=== PATIENT | female | born 1935 | race Caucasian/White ===

== ENCOUNTER 2017-12-19 11:20 | Inpatient (IN) | END 2017-12-26 15:44 | disposition home or self-care (01) | DRG 246 ==

== ENCOUNTER 2018-01-13 04:14 | Inpatient (IN) | END 2018-01-18 15:53 | disposition home or self-care (01) | DRG 280 ==

== ENCOUNTER 2018-01-30 02:52 | Inpatient (IN) | END 2018-02-02 16:55 | disposition home or self-care (01) | DRG 871 ==

== ENCOUNTER 2019-01-14 01:59 | Inpatient (IN) | payer BC ==
[~2019-01-14] VITALS: Ht 160 cm; Wt 69.3 kg
[2019-01-14] VITALS (7 sets, daily range): BP systolic 95–116; BP diastolic 56–83; PULSE 67–93; RESP 18; Ht 160 cm; Wt 69.3 kg
[~2019-01-14 01:59] MED LIST: AMIO200T4 PO; APIX5TAB PO; ATOR-2 PO; CLOP75TA28 PO; ERGO500013 PO; GABA100C14 PO; LAS20 PO; METO-448 PO; OXYB5TAB22 PO
[2019-01-14] MEDS ORDERED: CEFEPIME 2GM/50 ML (PMX) 50 ML IVPB STA (02:28)
[2019-01-14] MEDS ORDERED: VANCOMYCIN 1 GM (PMX) 250 ML IVPB ONE (02:30)
[2019-01-14] MEDS ORDERED: ASPIRIN 81 MG TAB PO STA (03:06)
[2019-01-14] MEDS ORDERED: SOD CHLORIDE 0.9% 1,000 ML IV SCH (04:11)
[2019-01-14] MEDS ORDERED: ACETAMINOPHEN 325 MG TAB PO PRN (04:30)
[2019-01-14] MEDS ORDERED: ENOXAPARIN 60 MG/0.6 ML SYG SC SCH (04:30)
[2019-01-14] MEDS ORDERED: HYDROCODONE/APAP (5/325) TAB PO PRN (04:30)
[2019-01-14] MEDS ORDERED: ONDANSETRON 4 MG INJ IV PRN (04:30)
[2019-01-14] MEDS ORDERED: NITROGLYCERIN (SL) 0.4 MG TAB SL PRN (04:30)
[2019-01-14] MEDS ORDERED: FUROSEMIDE 40 MG INJ IV ONE (04:30)
[2019-01-14] MEDS ORDERED: BISACODYL (EC) 5 MG TAB PO PRN (04:30)
[2019-01-14] MEDS ORDERED: DOCUSATE SODIUM 100 MG CAP PO PRN (04:30)
[2019-01-14] MEDS ORDERED: NACL 0.9% 3 ML SYG IV SCH (04:30)
[2019-01-14] MEDS ORDERED: FERR325T5 PO (04:43)
[2019-01-14] MEDS ORDERED: ALLO300T2 PO (04:43)
[2019-01-14] MEDS ORDERED: LEVO88TA3 PO (04:43)
[2019-01-14] MEDS ORDERED: DOCU-159 PO (04:47)
[2019-01-14] MEDS ORDERED: GLIM2TAB PO (04:50)
[2019-01-14] MEDS ORDERED: ASPI-817 PO (04:50)
[2019-01-14] MEDS ORDERED: MELO7.5T38 PO (04:50)
--- NOTE | 2019-01-14 05:20 | ERD ---
ER Documentation Chief Complaint Chief Complaint SOB X TODAY HPI This is an 83-year-old female comes in with shortness of breath that started about 6 hours ago and got progressively worse. She denies any fevers chills nausea vomiting or chest pain. Shortness breath was progressively worse and worse when she laid down. History of CHF in the past. ROS All systems reviewed and are negative except as per history of present illness. Medications Home Meds Active Scripts Furosemide (Lasix) 20 Mg Tab, 20 MG PO BID DIURETICS for 7 Days, #14 TAB Prov:PAO WOOD MD 02/02/18 Amiodarone Hcl* (Amiodarone Hcl*) 200 Mg Tablet, 200 MG PO DAILY for 60 Days, #60 TAB Prov:PAO WOOD MD 02/02/18 Metoprolol Tartrate* (Lopressor*) 25 Mg Tab, 25 MG PO BID for 30 Days, #60 TAB Prov:PAO WOOD MD 01/18/18 Atorvastatin* (Atorvastatin*) 80 Mg Tablet, 80 MG PO HS, #90 TAB 0 Refills Prov:KYMBERLY BINGHAM 12/26/17 Clopidogrel Bisulfate (Clopidogrel) 75 Mg Tablet, 75 MG PO DAILY, #90 TAB 1 Refill Prov:KYMBERLY BINGHAM 12/26/17 Apixaban* (Eliquis*) 5 Mg Tablet, 5 MG PO BID, #60 TAB 2 Refills Prov:KYMBERLY BINGHAM 12/26/17 Reported Medications Meloxicam* (Meloxicam*) 7.5 Mg Tablet, 7.5 MG PO DAILY for 30 Days, #30 01/14/19 Glimepiride* (Glimepiride*) 2 Mg Tablet, 2 MG PO BID for 30 Days, #60 01/14/19 Aspirin* (Aspirin* EC) 81 Mg Tablet.dr, 81 MG PO DAILY for 30 Days, #30 01/14/19 Docusate Sodium* (Docusate Sodium*) 100 Mg Capsule, 100 MG PO DAILY, #30 CAP 01/14/19 Ferrous Sulfate (Ferrous Sulfate) 325 Mg Tablet.dr, 325 MG PO DAILY for 30 Days, #30 01/14/19 Levothyroxine Sodium* (Levothyroxine Sodium*) 88 Mcg Tablet, 88 MCG PO QAM for 30 Days, #30 01/14/19 Allopurinol* (Allopurinol*) 300 Mg Tablet, 300 MG PO DAILY for 30 Days, #30 01/14/19 Oxybutynin Chloride* (Ditropan* XL) 5 Mg Tabsr, 5 MG PO DAILY, TAB.SA 12/19/17 Gabapentin* (Gabapentin*) 100 Mg Capsule, 100 MG PO QAM, #90 CAP 12/19/17 Discontinued Reported Medications Ergocalciferol (Vitamin D2) (VITAMIN D2) 50,000 Unit Capsule, 47799 UNIT PO WEEKLY, CAP 12/19/17 Allergies Allergies: Coded Allergies: No Known Allergy (Unverified , 01/14/19) PMhx/Soc History of Surgery: No Anesthesia Reaction: No Hx Neurological Disorder: No Hx Respiratory Disorders: No Hx Cardiac Disorders: Yes (CHF) Hx Psychiatric Problems: No Hx Miscellaneous Medical Probl: No Hx Alcohol Use: No Hx Substance Use: No Hx Tobacco Use: No Smoking Status: Never smoker Physical Exam Vitals Vital Signs Date Temp Pulse Resp B/P (MAP) Pulse Ox O2 O2 Flow FiO2 Time Delivery Rate 01/14/19 72 100 60 04:00 01/14/19 60 16 100/58 100 BIPAP 03:17 (72) 01/14/19 60 02:25 01/14/19 96.9 70 29 178/90 100 BIPAP 02:12 (119) 01/14/19 96.9 69 29 178/90 100 02:12 (119) 01/14/19 80 96 100 02:07 Physical Exam Const: No acute distress Head: Atraumatic Eyes: Normal Conjunctiva ENT: Normal External Ears, Nose and Mouth. Neck: Full range of motion. No meningismus. Resp: Scattered rales bilaterally Cardio: Regular rate and rhythm, no murmurs Abd: Soft, non tender, non distended. Normal bowel sounds Skin: No petechiae or rashes Back: No midline or flank tenderness Ext: No cyanosis, or edema Neur: Awake and alert Psych: Normal Mood and Affect Result Diagram: 01/14/1920901/14/19 0210 Results 24 hrs Laboratory Tests Test 01/14/19 02:10 01/14/19 02:17 01/14/19 02:27 White Blood Count 7.6 10^3/ul Red Blood Count 4.06 10^6/ul Hemoglobin 11.1 g/dl Hematocrit 35.3 % Mean Corpuscular Volume 86.9 fl Mean Corpuscular Hemoglobin 27.3 pg Mean Corpuscular 31.4 g/dl Hemoglobin Concent Red Cell Distribution Width 13.0 % Platelet Count 146 10^3/UL Mean Platelet Volume 10.3 fl Immature Granulocytes % 0.700 % Neutrophils % 67.5 % Lymphocytes % 21.9 % Monocytes % 6.8 % Eosinophils % 2.6 % Basophils % 0.5 % Nucleated Red Blood Cells % 0.3 /100WBC Immature Granulocytes # 0.050 10^3/ul Neutrophils # 5.1 10^3/ul Lymphocytes # 1.7 10^3/ul Monocytes # 0.5 10^3/ul Eosinophils # 0.2 10^3/ul Basophils # 0.0 10^3/ul Nucleated Red Blood Cells # 0.0 10^3/ul Prothrombin Time 16.9 Sec Prothrombin Time Ratio 1.3 INR International 1.36 Normalized Ratio Activated 29.7 Sec Partial Thromboplast Time Sodium Level 142 mmol/L Potassium Level 4.5 mmol/L Chloride Level 105 mmol/L Carbon Dioxide Level 23 mmol/L Anion Gap 14 Blood Urea Nitrogen 19 mg/dl Creatinine 1.09 mg/dl Est Glomerular Filtrat mL/min Rate mL/min Glucose Level 236 mg/dl Calcium Level 8.9 mg/dl Total Bilirubin 0.3 mg/dl Direct Bilirubin 0.00 mg/dl Indirect Bilirubin 0.3 mg/dl Aspartate Amino 40 IU/L Transf (AST/SGOT) Alanine 26 IU/L Aminotransferase (ALT/SGPT) Alkaline Phosphatase 93 IU/L Troponin I 0.138 ng/ml B-Type Natriuretic Peptide 4370 PG/ML Total Protein 7.1 g/dl Albumin 4.2 g/dl Globulin 2.90 g/dl Albumin/Globulin Ratio 1.44 Blood Gas Specimen Source Blood arterial Arterial Blood Date Drawn 01/14/2019 2:40:25 AM Arterial Blood pH 7.381 (Temp corrected) Arterial Blood pCO2 37.5 mmhg (Temp correct) Arterial Blood pO2 103.3 mmHG (Temp corrected) Arterial Blood HCO3 21.7 mmol/L Arterial Blood Base Excess -3.0 mmol/L Arterial Blood 97.1 mmHG Oxygen Saturation Elian Test ACCEPTAB Arterial Blood Gas Right Radial Puncture Site Arterial 0.3 % Blood Carboxyhemoglobin Arterial Blood 0.1 % Methemoglobin Blood Gas A-a O2 283.3 mmHg Differential Oxyhemoglobin Percent 96.7 % Blood Gas Temperature 37.0 C Blood Gas Respiration Rate 14.0 Blood Gas Actual 23 Respiration Rate Blood Gas Modality MASK - BIPAP FiO2 60.0 % Blood Gas Inspiratory Time 0.9 Blood Gas IPAP/EPAP Ratio 15/5 Blood Gas Notified Whom AA Blood Gas Notified Time 01/14/2019 2:52:19 AM POC Venous Lactate 5.8 mmol/L Current Medications Medications Dose Sig/Lisa Start Time Status Last (Trade) Ordered Route PRN Stop Time Admin Dose Reason Admin Cefepime HCl 50 ml @ ONCE STAT 01/14/19 DC 01/14/19 100 mls/hr IVPB 02:28 02:54 01/14/19 02:57 Vancomycin 250 ml @ ONCE ONCE 01/14/19 DC 01/14/19 HCl 125 mls/hr IVPB 02:30 03:38 01/14/19 04:29 Aspirin 162 mg ONCE STAT 01/14/19 DC 01/14/19 (Aspirin) PO 03:06 03:38 01/14/19 03:12 Amiodarone 200 mg DAILY PO 01/14/19 HCl 09:00 (Cordarone) 80 mg HS PO 01/14/19 Atorvastatin 21:00 Calcium (Lipitor) Clopidogrel 75 mg DAILY PO 01/14/19 Bisulfate 09:00 (plaVIX) Sodium 1,000 ml @ [id number] IV 01/14/19 Chloride 75 mls/hr 04:11 IV Flush 3 ml PER 01/14/19 (NS 3 ml) PROTOCOL IV 04:30 Ondansetron 4 mg Q6H PRN 01/14/19 HCl (Zofran IV 04:30 Inj) NAUSEA/VOMITI NG Aspirin 81 mg DAILY PO 01/14/19 (Aspirin) 09:00 1 tab Q5M PRN 01/14/19 Nitroglycerin SL .CHEST 04:30 PAIN (Nitroglyceri n (Sl Tab) 0.4 Mg) 650 mg Q6H PRN 01/14/19 Acetaminophen PO .PAIN 1-3 04:30 (Tylenol OR TEMP Tab) 1 tab Q6H PRN 01/14/19 Acetaminophen PO .PAIN 4-6 04:30 / Hydrocodone Bitart ([place] (5/325)) Docusate 100 mg Q12H PRN 01/14/19 Sodium PO 04:30 (Colace) .CONSTIPATION Bisacodyl 5 mg DAILY PRN 01/14/19 (Dulcolax) PO 04:30 .CONSTIPATION Enoxaparin 55 mg Q24H SC 01/14/19 Sodium 04:30 (Lovenox) Furosemide 40 mg ONCE ONCE 01/14/19 DC (Lasix) IV 04:30 01/14/19 04:36 Procedures/MDM Emergency department course: Patient seen and evaluated triage was in ER MD. Placed immediately on BiPAP. Had a stat cardiac workup including a stat chest x-ray and stat EKG. Diagnostic data: EKG: Rate/Rhythm: [Normal Sinus Rhythm] QRS, ST, T-waves: [No changes consistent w/ acute ischemia] Impression: [No evidence of ischemia or arrhythmia] Chest X-ray 1V Interpreted by me: Soft Tissue: No acute abnormalities Bones: No acute abnormalities Mediastinum/Cardiac Silhouette/Lungs: Increased interstitial fluid markings. Cardiomegaly. Impression: Pulmonary edema Patient's heart failure symptoms is concerning for acute decompensation and will require inpatient workup and monitoring. Further w/u for ischemia, arrhythmia, PE or dissection will be deferred to the inpatient team. Patient did have a lactic acid of 5.4 but this is likely secondary to hypoxic respiratory failure. Fluids were withheld secondary to history of CHF and obvious pulmonary edema on exam. However antibiotics broad-spectrum were appropriately started in case patient converts to sepsis as an inpatient Accepting Care Team: Current data and ongoing care discussed. Time: 4:05 AM Primary Provider: Hospitalist Consulting: [XOXOXO] Outstanding Data: none Critical Care: Time: 45 minutes, independent of separately billable procedural time Treatments/Evaluations: Close monitoring and treatment of unstable vital signs, cardiorespiratory, and neurologic status, while maintaining tight balance of fluid, respiratory, and cardiac interventions. Departure Diagnosis: Primary Impression: Respiratory distress Condition: Serious ZITA VALENTINE Jan 14, 2019 05:20
[2019-01-14] MEDS: ASPIRIN (EC) 81 MG TAB PO SCH (08:34)
--- NOTE | 2019-01-14 08:57 | HP ---
Date/Time of Note Date/Time of Note DATE: 01/14/19 TIME: 08:57 Assessment/Plan VTE Prophylaxis SCD applied (from Nsg): Yes Pharmacological prophylaxis: LMWH Lines/Catheters IV Catheter Type (from Nrsg): Saline Lock Assessment/Plan Assessment/Plan 1. Acute on chronic combined heart failure - Patient has hx of CHF exacerbations in the past with last about 1 year ago. Denies any change in diet, medications, or recent weight gain - Cardiology consultation placed for further recommendations - BNP noted to be elevated - CXR consistent with pulmonary edema and small bilateral effusions - On Lasix IV BID and will monitor I/O and daily weights - ECHO ordered 2. NSTEMI - Trops elevated and LMWH on board - possible demand in setting of CHF exacerbation and afib with RVR - EKG without acute ST changes - monitor 3. Atrial fibrillation with RVR - given Amiodarone PO with no improvement - Started on ggt given borderline BP - On eliquis at home and will resume prior to d/c 4. JOSE ANGEL on CKD - mild - continue monitoring - avoid nephrotoxic agents - most likely cardiorenal etiology 5. DM - A1c noted - hold home medications - ISS 6. hypothyroidism - TSH noted and will decrease dose of levothyroxine 7. CAD s/p PCI - continue home medications 8. Diet - Cardiac/carb controlled 9. DVT ppx - LMWH 10. Disposition - Admit to telemetry for treatment of CHF exacerbation and atrial fibrillation with RVR Result Diagram: 01/14/19 0210 01/14/19 0210 Results 24hrs Laboratory Tests Test 01/14/19 02:10 01/14/19 02:17 01/14/19 02:27 01/14/19 07:03 White Blood Count 7.6 Red Blood Count 4.06 L Hemoglobin 11.1 #L Hematocrit 35.3 #L Mean Corpuscular 86.9 Volume Mean Corpuscular 27.3 L Hemoglobin Mean Corpuscular 31.4 L Hemoglobin Concen t Red Cell 13.0 Distribution Width Platelet Count 146 # Mean Platelet 10.3 Volume Immature 0.700 H Granulocytes % Neutrophils % 67.5 Lymphocytes % 21.9 Monocytes % 6.8 Eosinophils % 2.6 Basophils % 0.5 Nucleated Red 0.3 H Blood Cells % Immature 0.050 H Granulocytes # Neutrophils # 5.1 Lymphocytes # 1.7 Monocytes # 0.5 Eosinophils # 0.2 Basophils # 0.0 Nucleated Red 0.0 Blood Cells # Prothrombin Time 16.9 H Prothrombin Time 1.3 Ratio INR International 1.36 Normalized Ratio Activated 29.7 Partial Thrombopl ast Time Sodium Level 142 Potassium Level 4.5 Chloride Level 105 Carbon Dioxide 23 Level Anion Gap 14 H Blood Urea 19 Nitrogen Creatinine 1.09 H Est Glomerular Filtrat Rate mL/min Glucose Level 236 H Calcium Level 8.9 Total Bilirubin 0.3 Direct Bilirubin 0.00 Indirect 0.3 Bilirubin Aspartate Amino 40 Transf (AST/SGOT) Alanine 26 Aminotransferase (ALT/SGPT) Alkaline 93 Phosphatase Troponin I 0.138 *H 0.266 *H B-Type 4370 H Natriuretic Peptide Total Protein 7.1 Albumin 4.2 Globulin 2.90 Albumin/Globulin 1.44 Ratio Blood Gas Blood arterial Specimen Source Arterial Blood 01/14/2019 2:40:2 Date Drawn 5 AM Arterial Blood pH 7.381 (Temp corrected) Arterial Blood 37.5 pCO2 (Temp correct) Arterial Blood 103.3 H pO2 (Temp corrected) Arterial Blood 21.7 L HCO3 Arterial Blood -3.0 Base Excess Arterial Blood 97.1 Oxygen Saturation Elian Test ACCEPTAB Arterial Blood Right Radial Gas Puncture Site Arterial 0.3 Blood Carboxyhemo globin Arterial Blood 0.1 Methemoglobin Blood Gas A-a O2 283.3 H Differential Oxyhemoglobin 96.7 Percent Blood Gas 37.0 Temperature Blood Gas 14.0 Respiration Rate Blood Gas Actual 23 Respiration Rate Blood Gas MASK - BIPAP Modality FiO2 60.0 Blood Gas 0.9 Inspiratory Time Blood Gas 15/5 IPAP/EPAP Ratio Blood Gas AA Notified Whom Blood Gas 01/14/2019 2:52:1 Notified Time 9 AM POC Venous 5.8 *H Lactate Lactic Acid Level 1.3 Magnesium Level 1.6 L Creatine Kinase 65 Creatine Kinase 2.2 Index Creatinine Kinase 1.45 MB (Mass) Triglycerides 72 Level Cholesterol Level 77 L LDL Cholesterol, 19 Calculated HDL Cholesterol 44 Cholesterol/HDL 1.7 Ratio Thyroid 0.027 L Stimulating Hormone (TSH) HPI/ROS Admit Date/Time Admit Date/Time 01/14/19 1000 Hx of Present Illness 83 yo F with PMH systolic and diastolic heart failure, diabetes mellitus, atrial fibrillation on Eliquis, CAD, CKD, mild aortic stenosis, and hypothyroidism presented to ED for acute shortness of breath this am. Patient admits to experiencing shortness of breath for about 6 hours that was worse while lying down and on exertion. She was brought in by EMS on BIPAP. Patient was noted to be in moderate distress at time of presentation, tripoding, and with accessory muscle use. In the ED, CXR was consistent with pulmonary edema and BNP noted to be elevated. Patient denies any recent weight gain and has been compliant with medications. She does admit to a dry cough recently but denies any fevers, ch ills, sick contact, recent travel, chest pain, wheezing, or abdominal issues. During course of ED stay, patient went into afib with RVR and started on Amiodarone drip given borderline BP. ROS All 12 systems reviewed and pertinent positives as per HPI. All others negative. Constitutional: No disoriented, No nausea Eyes: No discharge ENT: No congestion Respiratory: cough, shortness of breath; No sputum, No wheezing Cardiovascular: No chest pain, No lightheadedness, No palpitations Gastrointestinal: No pain, No constipation, No diarrhea, No nausea, No vomiting Genitourinary: no complaints Musculoskeletal: no complaints Skin: No erythema, No laceration, No rash Neurologic: No confusion, No focal-weakness, No syncope Endocrine: no complaints Lymphatic: no complaints Psychological: nl mood/affect Immunologic: no complaints PMH/Family/Social Past Medical History Medical History: congestive heart failure, coronary artery disease, diabetes, hypertension, hypothyroid, renal disease, other (atrial fibrillation, aortic stenosis) Medications Current Medications Amiodarone HCl (Cordarone) 200 mg DAILY PO Last administered on 01/14/19at 08:16; Admin Dose 200 MG; Start 01/14/19 at 09:00 Atorvastatin Calcium (Lipitor) 80 mg HS PO ; Start 01/14/19 at 21:00 Clopidogrel Bisulfate (plaVIX) 75 mg DAILY PO Last administered on 01/14/19at 08:34; Admin Dose 75 MG; Start 01/14/19 at 09:00 IV Flush (NS 3 ml) 3 ml PER PROTOCOL IV ; Start 01/14/19 at 04:30 Ondansetron HCl (Zofran Inj) 4 mg Q6H PRN IV NAUSEA/VOMITING; Start 01/14/19 at 04:30 Nitroglycerin (Nitroglycerin (Sl Tab) 0.4 Mg) 1 tab Q5M PRN SL .CHEST PAIN; Start 01/14/19 at 04:30 Acetaminophen (Tylenol Tab) 650 mg Q6H PRN PO .PAIN 1-3 OR TEMP; Start 01/14/19 at 04:30 Acetaminophen/ Hydrocodone Bitart ([place] (5/325)) 1 tab Q6H PRN PO .PAIN 4-6; Start 01/14/19 at 04:30 Docusate Sodium (Colace) 100 mg Q12H PRN PO .CONSTIPATION; Start 01/14/19 at 04:30 Bisacodyl (Dulcolax) 5 mg DAILY PRN PO .CONSTIPATION; Start 01/14/19 at 04:30 Enoxaparin Sodium (Lovenox) 55 mg Q24H SC Last administered on 01/14/19at 06:17; Admin Dose 55 MG; Start 01/14/19 at 04:30 Aspirin (Halfprin) 81 mg DAILY PO Last administered on 01/14/19at 08:34; Admin Dose 81 MG; Start 01/14/19 at 09:00 Levothyroxine Sodium (Synthroid) 88 mcg QAM PO ; Start 01/14/19 at 09:00 Glimepiride (Amaryl) 2 mg BID PO ; Start 01/14/19 at 09:00; Status UNV Oxybutynin Chloride (Ditropan Xl) 5 mg DAILY PO ; Start 01/14/19 at 09:00; Status UNV Miscellaneous Information 325 mg DAILY PO ; Start 01/14/19 at 09:00; Status UNV Coded Allergies: No Known Allergy (Unverified , 01/14/19) Past Surgical History Past Surgical Hx: no surgical history, other Family History Significant Family History: no pertinent family hx Social History Alcohol Use: none Smoking Status: Never smoker Drug Use: none Exam/Review of Systems Vital Signs Vitals Vital Signs Date Temp Pulse Resp B/P (MAP) Pulse Ox O2 O2 Flow FiO2 Time Delivery Rate 01/14/19 112 25 100/69 99 Nasal 4.0 08:00 (79) Cannula 01/14/19 60 05:10 01/14/19 96.9 02:12 Intake and Output 01/13/19 01/13/19 01/14/19 1515:00 23:00 07:00 IntakeIntake Total 50 ml BalanceBalance 50 ml Exam Exam General: Patient is laying in bed and answers questions appropriately. no acute respiratory distress. on nasal cannula Mentation: Patient is alert and oriented 4, Head: Normocephalic atraumatic Eyes: EOMI, pupils reactive to light Neck: Supple, nontender, midline Respiratory: Coarse breath sounds at bases, R>L. No wheezing appreciated Cardiovascular: S1, S2, irregular rhythm, tachycardia, systolic murmur appreciated Gastrointestinal: soft, nontender, nondistended, bowel sounds heard. no rebound or guarding Neurological: Moves all extremities spontaneously. no focal deficits appreciated Ext: no edema, clubbing or cyanosis Skin: no rashes or lesions Additional Comments Home medications reviewed PROCEDURE: XR Chest. CLINICAL INDICATION: Shortness of breath TECHNIQUE: AP view of the chest. COMPARISON: CHEST 01/30/2018 FINDINGS: The heart is enlarged. There is aortic knob calcification. There is mild pulmonary edema. There are small pleural effusions. There is no pneumothorax. Visualized osseous structures are intact. IMPRESSION: Mild pulmonary edema. Small bilateral pleural effusions. RPTAT: HAP Admit-r Flaquito Physician Date Time Electronically viewed and signed by Admit-r Flaquito, Physician on 01/14/2019 03:37 JOSE FENTON MD Jan 14, 2019 08:57
[2019-01-14] MEDS ORDERED: AMIODARONE 200 MG TAB PO SCH ×2 (09:00→21:00)
[2019-01-14] MEDS ORDERED: GLUCAGON 1 MG INJ IM PRN (09:00)
[2019-01-14] MEDS ORDERED: ASPIRIN 81 MG TAB PO SCH (09:00)
[2019-01-14] MEDS ORDERED: DEXTROSE 50% 50 ML SYRINGE IV PRN ×2 (09:00)
[2019-01-14] MEDS ORDERED: GLUCOSE GEL 15 GRAM TUBE PO PRN ×2 (09:00)
[2019-01-14] MEDS ORDERED: GLUCOSE GEL 15 GRAM TUBE BUCCAL PRN (09:00)
[2019-01-14] MEDS ORDERED: LEVOTHYROXINE 88 MCG TAB PO SCH (09:00)
[2019-01-14] MEDS ORDERED: CLOPIDOGREL 75 MG TAB PO SCH (09:00)
[2019-01-14] MEDS: OXYBUTYNIN (XL) 5 MG TAB PO SCH (09:39)
[2019-01-14] MEDS: FERROUS SULFATE (EC) 325 MG TAB PO SCH (09:39)
[2019-01-14] MEDS: AMIODARONE 900 MG in DEXTROSE 5% 482 ML IV SCH ×2 (10:29→18:10)
[2019-01-14] MEDS: INSULIN ASPART [NOVOLOG] 3 ML PEN SC SCH ×3 (12:00→20:59)
[2019-01-14] MEDS ORDERED: MAGNESIUM SULFATE 2 GM/50 ML 50 ML IVPB ONE (15:00)
[2019-01-14] MEDS: GLIMEPIRIDE 2 MG TAB PO SCH (17:56)
[2019-01-14] MEDS ORDERED: FUROSEMIDE 40 MG INJ IV SCH (18:00)
[2019-01-14] MEDS: FUROSEMIDE 20 MG INJ IV SCH (18:00)
--- NOTE | 2019-01-14 18:09 | CONS ---
Assessment/Plan Cardiology NYHA: II Heart Failure Type: Acute on Chronic Heart Failure Type: Systolic Assessment/Plan Hospital Course (Demo Recall) Acute decompensated systolic and diastolic congestive heart failure Cardiomyopathy with ejection fraction 45-50% Non-ST elevation NM status post PCI to LAD November 2017 Paroxysmal atrial fibrillation with rapid ventricular rates, improved Acute kidney injury Mild aortic stenosis Diabetes -Patient presents with paroxysmal atrial fibrillation with rapid ventricular rates and decompensated congestive heart failure -Symptoms have improved with IV Lasix, would continue and titrate as renal function blood pressure permits -Patient was initially in sinus rhythm and then atrial fibrillation on subsequent ECG. Continue IV amiodarone -Continue beta-blockers heart rate and blood pressure permits -Troponins are mildly elevated, this likely secondary to decompensated congestive heart failure. -Patient with PCI to LAD in November 2017, patient is on anticoagulation, would stop Plavix and continue aspirin and anticoagulation -Maintain potassium above 4.0 and magnesium above 2.0 -Check echocardiogram Consultation Date/Type/Reason Admit Date/Time 01/14/19 1000 Type of Consult Cardiology Reason for Consultation Shortness of breath Date/Time of Note DATE: 01/14/19 TIME: 18:02 Hx of Present Illness This is an 83-year-old female well-known to me from previous admissions with past medical history of CAD status post PCI November 2017, paroxysmal atrial fibrillation, congestive heart failure who presents with progressive worsening shortness of breath over 2-3 days. Symptoms are worse with lying down and with ambulation and improved at rest. She denies any chest pain, palpitations or dizziness. She is feeling much better after admission and receiving multiple medications. She still has mild shortness of breath now but it is much better. 12 point review of systems was performed with all pertinent positives and negatives mentioned above and all else is negative Past Medical History Paroxysmal atrial fibrillation Medical History: congestive heart failure, coronary artery disease, high cholesterol, hypertension, renal disease Home Meds Active Scripts Furosemide (Lasix) 20 Mg Tab, 20 MG PO BID DIURETICS for 7 Days, #14 TAB Prov:PAO WOOD MD 02/02/18 Amiodarone Hcl* (Amiodarone Hcl*) 200 Mg Tablet, 200 MG PO DAILY for 60 Days, #60 TAB Prov:PAO WOOD MD 02/02/18 Metoprolol Tartrate* (Lopressor*) 25 Mg Tab, 25 MG PO BID for 30 Days, #60 TAB Prov:PAO WOOD MD 01/18/18 Atorvastatin* (Atorvastatin*) 80 Mg Tablet, 80 MG PO HS, #90 TAB 0 Refills Prov:KYMBERLY BINGHAM 12/26/17 Clopidogrel Bisulfate (Clopidogrel) 75 Mg Tablet, 75 MG PO DAILY, #90 TAB 1 Refill Prov:KYMBERLY BINGHAM 12/26/17 Apixaban* (Eliquis*) 5 Mg Tablet, 5 MG PO BID, #60 TAB 2 Refills Prov:KYMBERLY BINGHAM 12/26/17 Reported Medications Meloxicam* (Meloxicam*) 7.5 Mg Tablet, 7.5 MG PO DAILY for 30 Days, #30 01/14/19 Glimepiride* (Glimepiride*) 2 Mg Tablet, 2 MG PO BID for 30 Days, #60 01/14/19 Aspirin* (Aspirin* EC) 81 Mg Tablet.dr, 81 MG PO DAILY for 30 Days, #30 01/14/19 Docusate Sodium* (Docusate Sodium*) 100 Mg Capsule, 100 MG PO DAILY, #30 CAP 01/14/19 Ferrous Sulfate (Ferrous Sulfate) 325 Mg Tablet.dr, 325 MG PO DAILY for 30 Days, #30 01/14/19 Levothyroxine Sodium* (Levothyroxine Sodium*) 88 Mcg Tablet, 88 MCG PO QAM for 30 Days, #30 01/14/19 Allopurinol* (Allopurinol*) 300 Mg Tablet, 300 MG PO DAILY for 30 Days, #30 01/14/19 Oxybutynin Chloride* (Ditropan* XL) 5 Mg Tabsr, 5 MG PO DAILY, TAB.SA 12/19/17 Gabapentin* (Gabapentin*) 100 Mg Capsule, 100 MG PO QAM, #90 CAP 12/19/17 Discontinued Reported Medications Ergocalciferol (Vitamin D2) (VITAMIN D2) 50,000 Unit Capsule, 39668 UNIT PO WEEKLY, CAP 12/19/17 Medications Current Medications Atorvastatin Calcium (Lipitor) 80 mg HS PO ; Start 01/14/19 at 21:00 Clopidogrel Bisulfate (plaVIX) 75 mg DAILY PO Last administered on 01/14/19at 08:34; Admin Dose 75 MG; Start 01/14/19 at 09:00 IV Flush (NS 3 ml) 3 ml PER PROTOCOL IV ; Start 01/14/19 at 04:30 Ondansetron HCl (Zofran Inj) 4 mg Q6H PRN IV NAUSEA/VOMITING; Start 01/14/19 at 04:30 Nitroglycerin (Nitroglycerin (Sl Tab) 0.4 Mg) 1 tab Q5M PRN SL .CHEST PAIN; Start 01/14/19 at 04:30 Acetaminophen (Tylenol Tab) 650 mg Q6H PRN PO .PAIN 1-3 OR TEMP; Start 01/14/19 at 04:30 Acetaminophen/ Hydrocodone Bitart ([place] (5/325)) 1 tab Q6H PRN PO .PAIN 4-6; Start 01/14/19 at 04:30 Docusate Sodium (Colace) 100 mg Q12H PRN PO .CONSTIPATION; Start 01/14/19 at 04:30 Bisacodyl (Dulcolax) 5 mg DAILY PRN PO .CONSTIPATION; Start 01/14/19 at 04:30 Enoxaparin Sodium (Lovenox) 55 mg Q24H SC Last administered on 01/14/19 06:17; Admin Dose 55 MG; Start 01/14/19 at 04:30 Aspirin (Halfprin) 81 mg DAILY PO Last administered on 01/14/19 08:34; Admin Dose 81 MG; Start 01/14/19 at 09:00 Glimepiride (Amaryl) 2 mg BID WITH MEALS PO Last administered on 01/14/19 17:56; Admin Dose 2 MG; Start 01/14/19 at 17:55 Oxybutynin Chloride (Ditropan Xl) 5 mg DAILY PO Last administered on 01/14/19 09:39; Admin Dose 5 MG; Start 01/14/19 at 09:00 Ferrous Sulfate (Ferrous Sulfate (Ec)) 325 mg DAILY PO Last administered on 01/14/19 09:39; Admin Dose 325 MG; Start 01/14/19 at 09:00 Furosemide (Lasix) 40 mg BID DIURETICS IV Last administered on 01/14/19 17:57; Admin Dose 40 MG; Start 01/14/19 at 18:00 Insulin Aspart (Novolog Insulin Pen) NOVOLOG *MILD* ALGORITHM WITH MEALS BEDTIME SC Last administered on 01/14/19 17:47; Admin Dose 1 UNIT; Start 01/14/19 at 12:00 Miscellaneous Information 1 ea NOTE XX ; Start 01/14/19 at 09:00 Glucose (Glutose) 15 gm Q15M PRN PO DECREASED GLUCOSE; Start 01/14/19 at 09:00 Glucose (Glutose) 22.5 gm Q15M PRN PO DECREASED GLUCOSE; Start 01/14/19 at 09:00 Dextrose (D50w Syringe) 25 ml Q15M PRN IV DECREASED GLUCOSE; Start 01/14/19 at 09:00 Dextrose (D50w Syringe) 50 ml Q15M PRN IV DECREASED GLUCOSE; Start 01/14/19 at 09:00 Glucagon (Glucagen) 1 mg Q15M PRN IM DECREASED GLUCOSE; Start 01/14/19 at 09:00 Glucose (Glutose) 15 gm Q15M PRN BUCCAL DECREASED GLUCOSE; Start 01/14/19 at 09:00 Amiodarone HCl 900 mg/Dextrose 500 ml @ 0 mls/hr Q0M IV Last administered on 01/14/19at 10:29; Admin Dose 33.3 MLS/HR; Start 01/14/19 at 10:00 Levothyroxine Sodium (Synthroid) 75 mcg QAM PO ; Start 01/15/19 at 09:00 Gabapentin (Neurontin) 100 mg QAM PO ; Start 01/15/19 at 09:00 Metoprolol Tartrate (Lopressor) 25 mg BID PO ; Start 01/14/19 at 21:00 Influenza Virus Vaccine Quadrival (Fluzone) 0.5 ml ONCE ONCE IM* ; Start 01/15/19 at 09:00; Stop 01/15/19 at 09:01 Allergies: Coded Allergies: No Known Allergy (Unverified , 01/14/19) Past Surgical History Past Surgical Hx: angioplasty, other Family History Significant Family History: no pertinent family hx Social History Alcohol Use: none Smoking Status: Never smoker Drug Use: none Exam/Review of Systems Vital Signs Vitals Vital Signs Date Temp Pulse Resp B/P (MAP) Pulse Ox O2 O2 Flow FiO2 Time Delivery Rate 01/14/19 98 2.0 17:18 01/14/19 98.0 90 18 95/63 (74) 16:23 01/14/19 Nasal 14:06 Cannula 01/14/19 60 05:10 Intake and Output 01/13/19 01/13/19 01/14/19 1515:00 23:00 07:00 IntakeIntake Total 50 ml BalanceBalance 50 ml Exam Constitutional: alert, oriented (No apparent distress, family bedside) Head: normocephalic Respiratory: other (Coarse breath sounds bilaterally, minimal scattered crackle s, no wheezing) Cardiovascular: irregular rhythm (S1-S2 heard) Gastrointestinal: soft, non-tender, bowel sounds Extremities: edema Labs Result Diagram: 01/14/19 0210 01/14/19 0210 Results 24hrs Laboratory Tests Test 01/14/19 02:10 01/14/19 02:17 01/14/19 02:27 01/14/19 05:00 White Blood Count 7.6 Red Blood Count 4.06 L Hemoglobin 11.1 #L Hematocrit 35.3 #L Mean Corpuscular 86.9 Volume Mean Corpuscular 27.3 L Hemoglobin Mean Corpuscular 31.4 L Hemoglobin Concen t Red Cell 13.0 Distribution Width Platelet Count 146 # Mean Platelet 10.3 Volume Immature 0.700 H Granulocytes % Neutrophils % 67.5 Lymphocytes % 21.9 Monocytes % 6.8 Eosinophils % 2.6 Basophils % 0.5 Nucleated Red 0.3 H Blood Cells % Immature 0.050 H Granulocytes # Neutrophils # 5.1 Lymphocytes # 1.7 Monocytes # 0.5 Eosinophils # 0.2 Basophils # 0.0 Nucleated Red 0.0 Blood Cells # Prothrombin Time 16.9 H Prothrombin Time 1.3 Ratio INR International 1.36 Normalized Ratio Activated 29.7 Partial Thrombopl ast Time Sodium Level 142 Potassium Level 4.5 Chloride Level 105 Carbon Dioxide 23 Level Anion Gap 14 H Blood Urea 19 Nitrogen Creatinine 1.09 H Est Glomerular Filtrat Rate mL/min Glucose Level 236 H Calcium Level 8.9 Total Bilirubin 0.3 Direct Bilirubin 0.00 Indirect 0.3 Bilirubin Aspartate Amino 40 Transf (AST/SGOT) Alanine 26 Aminotransferase (ALT/SGPT) Alkaline 93 Phosphatase Troponin I 0.138 *H B-Type 4370 H Natriuretic Peptide Total Protein 7.1 Albumin 4.2 Globulin 2.90 Albumin/Globulin 1.44 Ratio Blood Gas Blood arterial Specimen Source Arterial Blood 01/14/2019 2:40:2 Date Drawn 5 AM Arterial Blood pH 7.381 (Temp corrected) Arterial Blood 37.5 pCO2 (Temp correct) Arterial Blood 103.3 H pO2 (Temp corrected) Arterial Blood 21.7 L HCO3 Arterial Blood -3.0 Base Excess Arterial Blood 97.1 Oxygen Saturation Elian Test ACCEPTAB Arterial Blood Right Radial Gas Puncture Site Arterial 0.3 Blood Carboxyhemo globin Arterial Blood 0.1 Methemoglobin Blood Gas A-a O2 283.3 H Differential Oxyhemoglobin 96.7 Percent Blood Gas 37.0 Temperature Blood Gas 14.0 Respiration Rate Blood Gas Actual 23 Respiration Rate Blood Gas MASK - BIPAP Modality FiO2 60.0 Blood Gas 0.9 Inspiratory Time Blood Gas 15/5 IPAP/EPAP Ratio Blood Gas AA Notified Whom Blood Gas 01/14/2019 2:52:1 Notified Time 9 AM POC Venous 5.8 *H Lactate Hemoglobin A1c 6.3 H Test 01/14/19 07:03 01/14/19 11:59 01/14/19 12:41 01/14/19 17:23 Lactic Acid Level 1.3 Magnesium Level 1.6 L Creatine Kinase 65 65 Creatine Kinase 2.2 3.0 Index Creatinine Kinase 1.45 1.92 MB (Mass) Troponin I 0.266 *H 0.351 *H Triglycerides 72 Level Cholesterol Level 77 L LDL Cholesterol, 19 Calculated HDL Cholesterol 44 Cholesterol/HDL 1.7 Ratio Thyroid 0.027 L Stimulating Hormone (TSH) Bedside Glucose 138 150 Imaging Imaging ECG performed at 2:11 AM with sinus rhythm at 72 bpm, anterior Q waves, nonspecific ST abnormalities ECG performed at 9:17 AM with atrial fibrillation at 117 bpm, QRS 140 ms, anterior Q waves, nonspecific ST abnormalities Medications Medications Current Medications Atorvastatin Calcium (Lipitor) 80 mg HS PO ; Start 01/14/19 at 21:00 Clopidogrel Bisulfate (plaVIX) 75 mg DAILY PO Last administered on 01/14/19at 08:34; Admin Dose 75 MG; Start 01/14/19 at 09:00 IV Flush (NS 3 ml) 3 ml PER PROTOCOL IV ; Start 01/14/19 at 04:30 Ondansetron HCl (Zofran Inj) 4 mg Q6H PRN IV NAUSEA/VOMITING; Start 01/14/19 at 04:30 Nitroglycerin (Nitroglycerin (Sl Tab) 0.4 Mg) 1 tab Q5M PRN SL .CHEST PAIN; Start 01/14/19 at 04:30 Acetaminophen (Tylenol Tab) 650 mg Q6H PRN PO .PAIN 1-3 OR TEMP; Start 01/14/19 at 04:30 Acetaminophen/ Hydrocodone Bitart ([place] (5/325)) 1 tab Q6H PRN PO .PAIN 4-6; Start 01/14/19 at 04:30 Docusate Sodium (Colace) 100 mg Q12H PRN PO .CONSTIPATION; Start 01/14/19 at 04:30 Bisacodyl (Dulcolax) 5 mg DAILY PRN PO .CONSTIPATION; Start 01/14/19 at 04:30 Enoxaparin Sodium (Lovenox) 55 mg Q24H SC Last administered on 01/14/19at 06:17; Admin Dose 55 MG; Start 01/14/19 at 04:30 Aspirin (Halfprin) 81 mg DAILY PO Last administered on 01/14/19at 08:34; Admin Dose 81 MG; Start 01/14/19 at 09:00 Glimepiride (Amaryl) 2 mg BID WITH MEALS PO Last administered on 01/14/19 17:56; Admin Dose 2 MG; Start 01/14/19 at 17:55 Oxybutynin Chloride (Ditropan Xl) 5 mg DAILY PO Last administered on 01/14/19at 09:39; Admin Dose 5 MG; Start 01/14/19 at 09:00 Ferrous Sulfate (Ferrous Sulfate (Ec)) 325 mg DAILY PO Last administered on 01/14/19 09:39; Admin Dose 325 MG; Start 01/14/19 at 09:00 Furosemide (Lasix) 40 mg BID DIURETICS IV Last administered on 01/14/19at 17:57; Admin Dose 40 MG; Start 01/14/19 at 18:00 Insulin Aspart (Novolog Insulin Pen) NOVOLOG *MILD* ALGORITHM WITH MEALS BEDTIME SC Last administered on 01/14/19 17:47; Admin Dose 1 UNIT; Start 01/14/19 at 12:00 Miscellaneous Information 1 ea NOTE XX ; Start 01/14/19 at 09:00 Glucose (Glutose) 15 gm Q15M PRN PO DECREASED GLUCOSE; Start 01/14/19 at 09:00 Glucose (Glutose) 22.5 gm Q15M PRN PO DECREASED GLUCOSE; Start 01/14/19 at 09:00 Dextrose (D50w Syringe) 25 ml Q15M PRN IV DECREASED GLUCOSE; Start 01/14/19 at 09:00 Dextrose (D50w Syringe) 50 ml Q15M PRN IV DECREASED GLUCOSE; Start 01/14/19 at 09:00 Glucagon (Glucagen) 1 mg Q15M PRN IM DECREASED GLUCOSE; Start 01/14/19 at 09:00 Glucose (Glutose) 15 gm Q15M PRN BUCCAL DECREASED GLUCOSE; Start 01/14/19 at 09:00 Amiodarone HCl 900 mg/Dextrose 500 ml @ 0 mls/hr Q0M IV Last administered on 01/14/19at 10:29; Admin Dose 33.3 MLS/HR; Start 01/14/19 at 10:00 Levothyroxine Sodium (Synthroid) 75 mcg QAM PO ; Start 01/15/19 at 09:00 Gabapentin (Neurontin) 100 mg QAM PO ; Start 01/15/19 at 09:00 Metoprolol Tartrate (Lopressor) 25 mg BID PO ; Start 01/14/19 at 21:00 Influenza Virus Vaccine Quadrival (Fluzone) 0.5 ml ONCE ONCE IM* ; Start 9 at 09:00; Stop 01/15/19 at 09:01 Giovanni Mckinney DO Jan 14, 2019 18:09
[2019-01-14] MEDS ORDERED: DIGOXIN 500 MCG INJ IV ONE (18:30)
[2019-01-14] MEDS: METOPROLOL 25 MG TAB PO SCH (20:53)
[2019-01-14] MEDS: ATORVASTATIN 80 MG TAB PO SCH (20:54)
[2019-01-15] VITALS (12 sets, daily range): BP systolic 97–118; BP diastolic 63–72; PULSE 61–108; RESP 16–18
[2019-01-15] MEDS: FUROSEMIDE 20 MG INJ IV SCH ×2 (06:46→17:22)
[2019-01-15] MEDS: INSULIN ASPART [NOVOLOG] 3 ML PEN SC SCH ×4 (07:55→21:00)
[2019-01-15] MEDS: ASPIRIN (EC) 81 MG TAB PO SCH (08:17)
[2019-01-15] MEDS: METOPROLOL 25 MG TAB PO SCH ×2 (08:17→21:55)
[2019-01-15] MEDS: GLIMEPIRIDE 2 MG TAB PO SCH ×2 (08:18→17:18)
[2019-01-15] MEDS: FERROUS SULFATE (EC) 325 MG TAB PO SCH (08:18)
[2019-01-15] MEDS: OXYBUTYNIN (XL) 5 MG TAB PO SCH (08:18)
[2019-01-15] MEDS: APIXABAN 5 MG TABLET PO SCH ×2 (08:18→21:54)
[2019-01-15] MEDS: GABAPENTIN 100 MG CAP PO SCH (08:18)
[2019-01-15] MEDS: LEVOTHYROXINE 75 MCG TAB PO SCH (08:18)
[2019-01-15] MEDS ORDERED: INFLUENZA VIRUS VACCINE 0.5 ML (DISPENSING) IM* ONE (09:00)
--- NOTE | 2019-01-15 10:10 | PN ---
Date/Time of Note Date/Time of Note DATE: 01/15/19 TIME: 10:10 Assessment/Plan VTE Prophylaxis Risk score (from Ns)>0 risk: 4 SCD applied (from Ns): No SCD contraindicated: other Pharmacological prophylaxis: apixaban Lines/Catheters IV [facility] Type [facility]from [facility]): Peripheral IV Urinary Cath still in place: No Assessment/Plan Hospital Course SUBJECTIVE: OBJECTIVE: Vital signs-see below PHYSICAL EXAM: Constitutional: Elderly female not in acute distress. Psych: nl mood/affect, no complaints Head: atraumatic, normocephalic Eyes: nl conjunctiva, nl sclera ENMT: mucosa pink and moist, nl external ears & nose Neck: non-tender, supple Respiratory: dimished bibasilar. few crackles quentin. Cardiovascular:Irregular rate and rhythm Gastrointestinal: non-tender, soft, bowel sounds active in all 4 quadrants. Musculoskeletal/extremities: +trace edema. nl extremities to inspection, motor strength equal bilaterally, no focal deficit. Normal pulses,no cyanosis Neurological: Alert oriented 3,nl speech, nl strength Skin: nl turgor ASSESSMENT/PLAN: 83-year-old female with multiple hospitalizations secondary to CAD/PAF/CHF, here with worsening shortness of breath, found to have CHF exacerbation and A. fib with RVR. 1. Acute on chronic combined heart failure -Continue diuresis and monitor volume status closely. 2. NSTEMI, likely secondary to decompensated CHF. -Status post PCI to LAD in 2017 -Continue aspirin -f/u cards recommendation 3. Atrial fibrillation with RVR -On amiodarone. Continue Eliquis. -Cards recommended to Maintain potassium above 4.0 and magnesium above 2.0, as such I will replete accordingly. 4. JOSE ANGEL on CKD - JOSE ANGEL likely 2/2diuretics -Continue to monitor. 5. DMII -Stable. Continue Accu-Cheks/- ISS 6. hypothyroidism - On levothyroxine 7. CAD s/p PCI - continue home medications 8. Diet - Cardiac/carb controlled 9. DVT ppx - LMWH Disposition: Patient on amiodarone guard and IV diuretics. Follow-up cardiology recommendations. Tentatively. Patient has an evaluation with Dr. Metz. Result Diagram: 01/15/19 0555 01/15/19 0555 Results 24hrs Laboratory Tests Test 01/14/19 11:59 01/14/19 12:41 01/14/19 17:23 01/14/19 20:52 Bedside Glucose 138 150 208 Creatine Kinase 65 Creatine Kinase 3.0 Index Creatinine Kinase MB 1.92 (Mass) Troponin I 0.351 *H Test 01/15/19 01:41 01/15/19 05:55 01/15/19 07:57 Bedside Glucose 111 123 White Blood Count 4.9 # Red Blood Count 3.88 L Hemoglobin 10.5 L Hematocrit 32.7 L Mean Corpuscular 84.3 Volume Mean Corpuscular 27.1 L Hemoglobin Mean Corpuscular 32.1 Hemoglobin Concent Red Cell 12.8 Distribution Width Platelet Count 144 Mean Platelet Volume 10.7 H Immature 0.200 Granulocytes % Neutrophils % 73.5 Lymphocytes % 18.4 Monocytes % 6.7 Eosinophils % 0.8 Basophils % 0.4 Nucleated Red Blood 0.0 Cells % Immature 0.010 Granulocytes # Neutrophils # 3.6 Lymphocytes # 0.9 Monocytes # 0.3 Eosinophils # 0.0 Basophils # 0.0 Nucleated Red Blood 0.0 Cells # Sodium Level 141 Potassium Level 3.7 Chloride Level 103 Carbon Dioxide Level 29 Anion Gap 9 # Blood Urea Nitrogen 21 H Creatinine 1.23 H Est Glomerular Filtrat Rate mL/min Glucose Level 101 # Calcium Level 8.6 Magnesium Level 1.7 Total Bilirubin 0.5 Direct Bilirubin 0.00 Indirect Bilirubin 0.5 Aspartate Amino 32 Transf (AST/SGOT) Alanine 25 Aminotransferase (AL T/SGPT) Alkaline Phosphatase 57 Creatine Kinase 61 Creatine Kinase 0.8 Index Creatinine Kinase MB 0.50 (Mass) Troponin I 0.279 *H Total Protein 6.2 Albumin 3.6 Globulin 2.60 Albumin/Globulin 1.38 Ratio Exam/Review of Systems Exam Vitals Vital Signs Date Temp Pulse Resp B/P (MAP) Pulse Ox O2 O2 Flow FiO2 Time Delivery Rate 01/15/19 Nasal 2.0 08:24 Cannula 01/15/19 108 08:01 01/15/19 98.2 18 102/72 97 07:09 (82) 01/14/19 60 05:10 Intake and Output 01/14/19 01/14/19 01/15/19 1515:00 23:00 07:00 IntakeIntake Total 850 ml 250 ml BalanceBalance 850 ml 250 ml Results Results 24hrs Laboratory Tests Test 01/14/19 11:59 01/14/19 12:41 01/14/19 17:23 01/14/19 20:52 Bedside Glucose 138 150 208 Creatine Kinase 65 Creatine Kinase 3.0 Index Creatinine Kinase MB 1.92 (Mass) Troponin I 0.351 *H Test 01/15/19 01:41 01/15/19 05:55 01/15/19 07:57 Bedside Glucose 111 123 White Blood Count 4.9 # Red Blood Count 3.88 L Hemoglobin 10.5 L Hematocrit 32.7 L Mean Corpuscular 84.3 Volume Mean Corpuscular 27.1 L Hemoglobin Mean Corpuscular 32.1 Hemoglobin Concent Red Cell 12.8 Distribution Width Platelet Count 144 Mean Platelet Volume 10.7 H Immature 0.200 Granulocytes % Neutrophils % 73.5 Lymphocytes % 18.4 Monocytes % 6.7 Eosinophils % 0.8 Basophils % 0.4 Nucleated Red Blood 0.0 Cells % Immature 0.010 Granulocytes # Neutrophils # 3.6 Lymphocytes # 0.9 Monocytes # 0.3 Eosinophils # 0.0 Basophils # 0.0 Nucleated Red Blood 0.0 Cells # Sodium Level 141 Potassium Level 3.7 Chloride Level 103 Carbon Dioxide Level 29 Anion Gap 9 # Blood Urea Nitrogen 21 H Creatinine 1.23 H Est Glomerular Filtrat Rate mL/min Glucose Level 101 # Calcium Level 8.6 Magnesium Level 1.7 Total Bilirubin 0.5 Direct Bilirubin 0.00 Indirect Bilirubin 0.5 Aspartate Amino 32 Transf (AST/SGOT) Alanine 25 Aminotransferase (AL T/SGPT) Alkaline Phosphatase 57 Creatine Kinase 61 Creatine Kinase 0.8 Index Creatinine Kinase MB 0.50 (Mass) Troponin I 0.279 *H Total Protein 6.2 Albumin 3.6 Globulin 2.60 Albumin/Globulin 1.38 Ratio Medications Medication Current Medications Atorvastatin Calcium (Lipitor) 80 mg HS PO Last administered on 01/14/19at 20:54; Admin Dose 80 MG; Start 01/14/19 at 21:00 IV Flush (NS 3 ml) 3 ml PER PROTOCOL IV ; Start 01/14/19 at 04:30 Ondansetron HCl (Zofran Inj) 4 mg Q6H PRN IV NAUSEA/VOMITING; Start 01/14/19 at 04:30 Nitroglycerin (Nitroglycerin (Sl Tab) 0.4 Mg) 1 tab Q5M PRN SL .CHEST PAIN; Start 01/14/19 at 04:30 Acetaminophen (Tylenol Tab) 650 mg Q6H PRN PO .PAIN 1-3 OR TEMP; Start 01/14/19 at 04:30 Acetaminophen/ Hydrocodone Bitart ([place] (5/325)) 1 tab Q6H PRN PO .PAIN 4-6; Start 01/14/19 at 04:30 Docusate Sodium (Colace) 100 mg Q12H PRN PO .CONSTIPATION; Start 01/14/19 at 04:30 Bisacodyl (Dulcolax) 5 mg DAILY PRN PO .CONSTIPATION; Start 01/14/19 at 04:30 Aspirin (Halfprin) 81 mg DAILY PO Last administered on 01/15/19at 08:17; Admin Dose 81 MG; Start 01/14/19 at 09:00 Glimepiride (Amaryl) 2 mg BID WITH MEALS PO Last administered on 01/15/19at 08:18; Admin Dose 2 MG; Start 01/14/19 at 17:55 Oxybutynin Chloride (Ditropan Xl) 5 mg DAILY PO Last administered on 01/15/19at 08:18; Admin Dose 5 MG; Start 01/14/19 at 09:00 Ferrous Sulfate (Ferrous Sulfate (Ec)) 325 mg DAILY PO Last administered on 01/15/19at 08:18; Admin Dose 325 MG; Start 01/14/19 at 09:00 Insulin Aspart (Novolog Insulin Pen) NOVOLOG *MILD* ALGORITHM WITH MEALS BEDTIME SC Last administered on 01/14/19at 20:59; Admin Dose 1 UNIT; Start 01/14/19 at 12:00 Miscellaneous Information 1 ea NOTE XX ; Start 01/14/19 at 09:00 Glucose (Glutose) 15 gm Q15M PRN PO DECREASED GLUCOSE; Start 01/14/19 at 09:00 Glucose (Glutose) 22.5 gm Q15M PRN PO DECREASED GLUCOSE; Start 01/14/19 at 09:00 Dextrose (D50w Syringe) 25 ml Q15M PRN IV DECREASED GLUCOSE; Start 01/14/19 at 09:00 Dextrose (D50w Syringe) 50 ml Q15M PRN IV DECREASED GLUCOSE; Start 01/14/19 at 09:00 Glucagon (Glucagen) 1 mg Q15M PRN IM DECREASED GLUCOSE; Start 01/14/19 at 09:00 Glucose (Glutose) 15 gm Q15M PRN BUCCAL DECREASED GLUCOSE; Start 01/14/19 at 09:00 Amiodarone HCl 900 mg/Dextrose 500 ml @ 0 mls/hr Q0M IV Last administered on 01/14/19at 18:10; Admin Dose 16.7 MLS/HR; Start 01/14/19 at 10:00 Levothyroxine Sodium (Synthroid) 75 mcg QAM PO Last administered on 01/15/19at 08:18; Admin Dose 75 MCG; Start 01/15/19 at 09:00 Gabapentin (Neurontin) 100 mg QAM PO Last administered on 01/15/19 08:18; Admin Dose 100 MG; Start 01/15/19 at 09:00 Metoprolol Tartrate (Lopressor) 25 mg BID PO Last administered on 01/15/19at 08:17; Admin Dose 25 MG; Start 01/14/19 at 21:00 Furosemide (Lasix) 20 mg BID DIURETICS IV Last administered on 01/15/19at 06:46; Admin Dose 20 MG; Start 01/14/19 at 18:00 Apixaban (Eliquis) 5 mg BID PO Last administered on 01/15/19 08:18; Admin Dose 5 MG; Start 01/15/19 at 09:00 JIN HDEZ NP Jan 15, 2019 10:10
[2019-01-15] MEDS ORDERED: POTASSIUM CHLORIDE (SR) 10 MEQ TAB PO ONE (10:30)
[2019-01-15] MEDS ORDERED: MAGNESIUM SULFATE 2 GM/50 ML 50 ML IVPB ONE (10:30)
--- NOTE | 2019-01-15 15:27 | RADRPT ---
Echocardiogram Report Patient Name: Dona TAVERAStient ID: [id number] : 1935 (84y )Study Date: 01/14/2019 6:32:04 AM Gender: FAccession #: [id number] Tech: [place] Location: Ref.Physician: AHSAN RIVERA Height(Cm): BSA: Weight(Kg): Quality: GoodAccount #: Procedures: Echocardiographic Report: Transthoracic echocardiogram with complete 2D, M-Mode, and doppler examination. Indications: NSTEMI. Measurements: 2D/M Mode Doppler Measurement Value Normal Range Measurement Value Normal Range LVIDd 2D 4.0 [ 3.8 - 5.2 ] cm CHESTER VTI 1.1 [ 2.0 - 4.0 ] cm2 LVIDs 2D 2.8 [ 2.2 - 3.5 ] cm AV Mean Daniele 2.2 [ 70.0 - 90.0 ] cm/sec LVPWd 2D 1.0 [ 0.6 - 0.9 ] cm AV Mean PG 23.0 [ 2.0 - 4.0 ] mmHg IVSd 2D 1.1 [ 0.6 - 0.9 ] cm AV VTI 78.9 cm AoR Diam 2D 2.7 [ 2.3 - 3.1 ] cm LVOT Mean Daniele 0.8 [ 60.0 - 80.0 ] cm/sec EDV 2D 68.8 [ 46.0 - 106.0 ] ml LVOT Mean PG 3.0 [ 1.0 - 3.0 ] mmHg ESV 2D 28.3 [ 14.0 - 42.0 ] ml LVOT Peak Daniele 1.1 [ 70.0 - 110.0 ] cm/sec EF 2D 58.9 [ 54.0 - 74.0 ] percent LVOT Peak PG 5.0 [ 2.0 - 6.0 ] mmHg LA Dimen 2D 3.7 [ 2.7 - 3.8 ] cm LVOT VTI 27.8 [ 20.0 - 30.0 ] cm LVOT Diam 2.0 [ 2.1 - 2.5 ] cm MV E Peak Daniele 0.9 [ 60.0 - 130.0 ] cm/sec MV A Peak Daniele 0.3 [ 100.0 - 120.0 ] cm/sec MV E/A 3.0 [ 0.8 - 1.5 ] ratio MV Decel Time 155 [ 104 - 258 ] msec Lat E` Daniele 0.1 [ 10.0 - 15.0 ] cm/sec Lateral E/E` 12.6 [ 1.0 - 2.0 ] ratio Med E` Daniele 0.0 cm/sec MV E/A 3.0 [ 0.8 - 1.5 ] ratio TR Peak Daniele 3.7 [ 100.0 - 280.0 ] cm/sec TR Peak PG 55.0 mmHg RVSP 70.0 [ 10.0 - 36.0 ] mmHg RA Pressure 15.0 mmHg Findings: Left Ventricle: Lower limits of normal systolic function. Normal left ventricular cavity size. Mild concentric left ventricular hypertrophy. Ejection fraction is visually estimated at 50 %. Tissue Doppler/Mitral Doppler indices are consistent with restrictive physiology with markedly elevated left atrial pressure (Stage III-IV diastolic dysfunction). Right Ventricle: Normal right ventricular size. Normal right ventricular systolic function. Left Atrium: The left atrium is normal in size. Right Atrium: The right atrium is normal in size. Mitral Valve: Mild mitral leaflet calcification. Moderate mitral annular calcification. Moderate mitral valve regurgitation. Aortic Valve: Moderate aortic stenosis. Aortic valve Max velocity 3.18 m/sec. Max PG 40.60 mmHg. Mean PG 23.00 mmHg. Aortic valve area 1.10 cm2. Trace aortic valve regurgitation. Tricuspid Valve: Normal appearance of the tricuspid valve. Estimated peak PA systolic pressure 70 mmHg. There is mild to moderate tricuspid regurgitation. Pulmonic Valve: Pulmonic valve not well visualized. Pericardium: Normal pericardium with no significant pericardial effusion. Aorta: Normal aortic root. IVC: Dilated IVC without respiratory collapse consistent with elevated right atrial pressure. Conclusions: Lower limits of normal systolic function. Normal left ventricular cavity size. Mild concentric left ventricular hypertrophy. Ejection fraction is visually estimated at 50 %. Tissue Doppler/Mitral Doppler indices are consistent with restrictive physiology with markedly elevated left atrial pressure (Stage III-IV diastolic dysfunction). Mild mitral leaflet calcification. Moderate mitral annular calcification. Moderate mitral valve regurgitation. Moderate aortic stenosis. Aortic valve Max velocity 3.18 m/sec. Max PG 40.60 mmHg. Mean PG 23.00 mmHg. Aortic valve area 1.10 cm2. Trace aortic valve regurgitation. Normal appearance of the tricuspid valve. Estimated peak PA systolic pressure 70 mmHg. There is mild to moderate tricuspid regurgitation. Dilated IVC without respiratory collapse consistent with elevated right atrial pressure. Electronically Signed By: Marito Guy 2019-01-15 15:26:18 PDT
[2019-01-15] MEDS: AMIODARONE 200 MG TAB PO SCH ×2 (15:32→21:54)
[2019-01-15] MEDS: ATORVASTATIN 80 MG TAB PO SCH (21:53)
[2019-01-16] VITALS (9 sets, daily range): BP systolic 97–107; BP diastolic 54–70; PULSE 62–110; RESP 16–19
[2019-01-16] MEDS: INSULIN ASPART [NOVOLOG] 3 ML PEN SC SCH ×2 (07:43→11:53)
[2019-01-16] MEDS: LEVOTHYROXINE 75 MCG TAB PO SCH (08:25)
[2019-01-16] MEDS: GLIMEPIRIDE 2 MG TAB PO SCH (08:26)
[2019-01-16] MEDS: OXYBUTYNIN (XL) 5 MG TAB PO SCH (08:26)
[2019-01-16] MEDS: APIXABAN 5 MG TABLET PO SCH (08:26)
[2019-01-16] MEDS: FERROUS SULFATE (EC) 325 MG TAB PO SCH (08:26)
[2019-01-16] MEDS: METOPROLOL 25 MG TAB PO SCH (08:26)
[2019-01-16] MEDS: GABAPENTIN 100 MG CAP PO SCH (08:27)
[2019-01-16] MEDS: AMIODARONE 200 MG TAB PO SCH (08:27)
[2019-01-16] MEDS ORDERED: FUROSEMIDE 40 MG TAB PO SCH (09:00)
[2019-01-16] MEDS: ASPIRIN (EC) 81 MG TAB PO SCH ×2 (09:00→11:46)
--- NOTE | 2019-01-16 11:26 | PDOCDIS ---
Discharge Instructions CONDITION [id number] Patient Condition: [id number] Stable HOME CARE INSTRUCTIONS: [id number] Diet Instructions: [id number] Low Fat /Cholesterol FOLLOW UP/APPOINTMENTS Follow-up Plan Follow-up With in his clinic in 2 weeks. Name, Degree Giovanni Mckinney, DO Specialty Cardiovascular Disease Comments Office Address [facility] [place] [id number] Office Office Follow up With primary care physician in 1 week JIN HDEZ NP Jan 16, 2019 11:26
[2019-01-16] MEDS ORDERED: AMIO200T4 PO (11:30)
[2019-01-16] MEDS ORDERED: FURO40TA4 PO (11:30)
[2019-01-16] MEDS ORDERED: LEVO75TA5 PO (11:30)
--- NOTE | 2019-01-16 11:39 | DS ---
Date/Time of Note Date/Time of Note DATE: 01/16/19 TIME: 11:35 Discharge Summary Admission/Discharge Info Admit Date/Time Jan 14, 2019 at 03:56 Discharge Date/Time Discharge Diagnosis 1. Acute on chronic combined heart failure.Stable. 2. NSTEMI, likely secondary to decompensated CHF. 3. CAD, Status post PCI to LAD in 2017 3. Atrial fibrillation with RVR 4. JOSE ANGEL on CKD.resolved 5. DMII 6. hypothyroidism 7. CAD s/p PCI 8. Diet Consults , cards Procedures 01/15/2019. 2D echocardiogram. Conclusions: Lower limits of normal systolic function. Normal left ventricular cavity size. Mild concentric left ventricular hypertrophy. Ejection fraction is visually estimated at 50 %. Tissue Doppler/Mitral Doppler indices are consistent with restrictive physiology with markedly elevated left atrial pressure (Stage III-IV diastolic dysfunction). Mild mitral leaflet calcification. Moderate mitral annular calcification. Moderate mitral valve regurgitation. Moderate aortic stenosis. Aortic valve Max velocity 3.18 m/sec. Max PG 40.60 mmHg. Mean PG 23.00 mmHg. Aortic valve area 1.10 cm2. Trace aortic valve regurgitation. Normal appearance of the tricuspid valve. Estimated peak PA systolic pressure 70 mmHg. There is mild to moderate tricuspid regurgitation. Dilated IVC without respiratory collapse consistent with elevated right atrial pressure. Electronically Signed By: Marito Guy 2019-01-15 15:26:18 PDT Hospital Course 83-year-old female with multiple hospitalizations secondary to CAD/PAF/CHF, Status post PCI to LAD in 2017, here with worsening shortness of breath, found to have CHF exacerbation and A. fib with RVR. Patient rodríguez cardiology eval. Patient required amiodarone GTT for rate control and eliquis to anticoagulate. Patient was also continued on IV diuresis for heart failure exacerbation. Volume status remained stable. Electrolyte level was monitored closely and kept under desired range. There was no further rapid ventricular rate and patient remained in controlled A. fib. Patient also was noted with elevated troponin likely secondary to decompensated congestive heart failure. Troponin trended down. Patient with no EKG changes or chest pain. Patient was transitioned to oral amiodarone. She is feeling back to her baseline. At this time, patient was cleared from cardiology standpoint for outpatient follow-up. Patient was instructed to talk weeks and to continue aspirin and Eliquis per cardiology recommendation. Approximately 60 m spent on coordinate discharge on this patient. Patient was seen in collaboration with Dr. Metz. Home Meds Active Scripts Levothyroxine Sodium* (Levothyroxine Sodium*) 75 Mcg Tablet, 75 MCG PO QAM, #30 TAB Prov:HDEZRIOSA V. [employer]AGE [employer]ORER 01/16/19 Furosemide* (Furosemide*) 40 Mg Tablet, 40 MG PO DAILY, #30 TAB Prov:HDEZORLANDOJIN V. GARAGE LABORER 01/16/19 Amiodarone Hcl* (Amiodarone Hcl*) 200 Mg Tablet, 200 MG PO BID, #60 TAB Prov:HDEZORLANDOJIN V. GARAGE LABORER 01/16/19 Furosemide (Lasix) 20 Mg Tab, 20 MG PO BID DIURETICS for 7 Days, #14 TAB Prov:PAO WOOD MD 02/02/18 Amiodarone Hcl* (Amiodarone Hcl*) 200 Mg Tablet, 200 MG PO DAILY for 60 Days, # 60 TAB Prov:PAO WOOD MD 02/02/18 Metoprolol Tartrate* (Lopressor*) 25 Mg Tab, 25 MG PO BID for 30 Days, #60 TAB Prov:PAO WOOD MD 01/18/18 Atorvastatin* (Atorvastatin*) 80 Mg Tablet, 80 MG PO HS, #90 TAB 0 Refills Prov:KYMBERLY BINGHAM 12/26/17 Clopidogrel Bisulfate (Clopidogrel) 75 Mg Tablet, 75 MG PO DAILY, #90 TAB 1 Refill Prov:KYMBERLY BINGHAM 12/26/17 Apixaban* (Eliquis*) 5 Mg Tablet, 5 MG PO BID, #60 TAB 2 Refills Prov:KYMBERLY BINGHAM 12/26/17 Reported Medications Meloxicam* (Meloxicam*) 7.5 Mg Tablet, 7.5 MG PO DAILY for 30 Days, #30 01/14/19 Glimepiride* (Glimepiride*) 2 Mg Tablet, 2 MG PO BID for 30 Days, #60 01/14/19 Aspirin* (Aspirin* EC) 81 Mg Tablet.dr, 81 MG PO DAILY for 30 Days, #30 01/14/19 Docusate Sodium* (Docusate Sodium*) 100 Mg Capsule, 100 MG PO DAILY, #30 CAP 01/14/19 Ferrous Sulfate (Ferrous Sulfate) 325 Mg Tablet.dr, 325 MG PO DAILY for 30 Days, #30 01/14/19 Levothyroxine Sodium* (Levothyroxine Sodium*) 88 Mcg Tablet, 88 MCG PO QAM for 30 Days, #30 01/14/19 Allopurinol* (Allopurinol*) 300 Mg Tablet, 300 MG PO DAILY for 30 Days, #30 01/14/19 Oxybutynin Chloride* (Ditropan* XL) 5 Mg Tabsr, 5 MG PO DAILY, TAB.SA 12/19/17 Gabapentin* (Gabapentin*) 100 Mg Capsule, 100 MG PO QAM, #90 CAP 12/19/17 Discontinued Reported Medications Ergocalciferol (Vitamin D2) (VITAMIN D2) 50,000 Unit Capsule, 77737 UNIT PO WEEKLY, CAP 12/19/17 Follow-up Plan Follow-up With in his clinic in 2 weeks. Name, Degree Giovanni Mckinney, DO Specialty Cardiovascular Disease Comments Office [place] [address] Office Office Follow up With primary care physician in 1 week Primary Care Provider Not On Staff Doctor Pending Labs Laboratory Tests Test 01/15/19 11:41 01/15/19 17:16 01/15/19 21:18 01/16/19 06:17 Bedside 149 195 130 Glucose mg/dL (70-220) mg/dL (70-220) mg/dL (70-220) Sodium Level 141 mmol/L (135-14 4) Potassium 4.1 Level mmol/L (3.5-5. 1) Chloride Level 101 mmol/L (97-110 ) Carbon Dioxide 27 Level mmol/L (21-31) Anion Gap 13 (5-13) Blood Urea 25 Nitrogen mg/dl (7-20) Creatinine 0.97 mg/dl (0.44-1. 00) Est Glomerular mL/min (>60) Filtrat Rate mL/min Glucose Level 115 mg/dl (70-220) Calcium Level 8.8 mg/dl (8.4-10. 2) Magnesium 1.9 Level mg/dl (1.7-2.5 ) Test 01/16/19 07:42 Bedside 132 Glucose mg/dL (70-220) JIN HDEZ NP Jan 16, 2019 11:39
--- NOTE | 2019-01-16 12:25 | CONS ---
Assessment/Plan Cardiology NYHA: II Heart Failure Type: Acute on Chronic Heart Failure Type: Systolic Assessment/Plan Hospital Course (Demo Recall) Acute decompensated systolic and diastolic congestive heart failure Cardiomyopathy with ejection fraction 50% Non-ST elevation IA status post PCI to LAD November 2017 Paroxysmal atrial fibrillation with rapid ventricular rates, improved Acute kidney injury Mild aortic stenosis Diabetes -Patient presents with paroxysmal atrial fibrillation with rapid ventricular rates and decompensated congestive heart failure -Symptoms have improved with Lasix, would continue and titrate as renal function blood pressure permits -Continue beta-blockers heart rate and blood pressure permits -DC planning Consultation Date/Type/Reason Admit Date/Time Jan 14, 2019 at 03:56 Initial Consult Date Type of Consult Cardiology Date/Time of Note DATE: 01/16/19 TIME: 12:23 24 HR Interval Summary Free Text/Dictation Patient feeling better, less shortness of breath. Denies chest pain Exam/Review of Systems Vital Signs Vitals Vital Signs Date Temp Pulse Resp B/P (MAP) Pulse Ox O2 O2 Flow FiO2 Time Delivery Rate 01/16/19 74 12:06 01/16/19 98.1 16 105/69 98 Nasal 2.0 11:09 (81) Cannula 01/14/19 60 05:10 Intake and Output 01/15/19 01/15/19 01/16/19 1515:00 23:00 07:00 IntakeIntake Total 50 ml 835 ml BalanceBalance 50 ml 835 ml Exam Constitutional: alert, oriented (No apparent distress) Head: normocephalic Respiratory: other (Coarse breath sounds bilaterally, no wheezing) Cardiovascular: irregular rhythm (S1-S2 heard) Gastrointestinal: soft, non-tender, bowel sounds Extremities: other (No significant edema) Labs Result Diagram: 01/15/19 0555 01/16/19 0617 Results 24hrs Laboratory Tests Test 01/15/19 17:16 01/15/19 21:18 01/16/19 06:17 01/16/19 07:42 Bedside Glucose 195 130 132 Sodium Level 141 Potassium Level 4.1 Chloride Level 101 Carbon Dioxide Level 27 Anion Gap 13 Blood Urea Nitrogen 25 H Creatinine 0.97 Est Glomerular Filtrat Rate mL/min Glucose Level 115 Calcium Level 8.8 Magnesium Level 1.9 Test 01/16/19 11:45 Bedside Glucose 212 Medications Medications Current Medications Atorvastatin Calcium (Lipitor) 80 mg HS PO Last administered on 01/15/19 21:53; Admin Dose 80 MG; Start 01/14/19 at 21:00 IV Flush (NS 3 ml) 3 ml PER PROTOCOL IV ; Start 01/14/19 at 04:30 Ondansetron HCl (Zofran Inj) 4 mg Q6H PRN IV NAUSEA/VOMITING; Start 01/14/19 at 04:30 Nitroglycerin (Nitroglycerin (Sl Tab) 0.4 Mg) 1 tab Q5M PRN SL .CHEST PAIN; Start 01/14/19 at 04:30 Acetaminophen (Tylenol Tab) 650 mg Q6H PRN PO .PAIN 1-3 OR TEMP; Start 01/14/19 at 04:30 Acetaminophen/ Hydrocodone Bitart ([place] (5/325)) 1 tab Q6H PRN PO .PAIN 4-6; Start 01/14/19 at 04:30 Docusate Sodium (Colace) 100 mg Q12H PRN PO .CONSTIPATION; Start 01/14/19 at 04:30 Bisacodyl (Dulcolax) 5 mg DAILY PRN PO .CONSTIPATION; Start 01/14/19 at 04:30 Aspirin (Halfprin) 81 mg DAILY PO Last administered on 01/16/19at 11:46; Admin Dose 81 MG; Start 01/14/19 at 09:00 Glimepiride (Amaryl) 2 mg BID WITH MEALS PO Last administered on 01/16/19 08:26; Admin Dose 2 MG; Start 01/14/19 at 17:55 Oxybutynin Chloride (Ditropan Xl) 5 mg DAILY PO Last administered on 01/16/19 08:26; Admin Dose 5 MG; Start 01/14/19 at 09:00 Ferrous Sulfate (Ferrous Sulfate (Ec)) 325 mg DAILY PO Last administered on 01/16/19 08:26; Admin Dose 325 MG; Start 01/14/19 at 09:00 Insulin Aspart (Novolog Insulin Pen) NOVOLOG *MILD* ALGORITHM WITH MEALS BEDTIME SC Last administered on 01/16/19at 11:53; Admin Dose 2 UNIT; Start 01/14/19 at 12:00 Miscellaneous Information 1 ea NOTE XX ; Start 01/14/19 at 09:00 Glucose (Glutose) 15 gm Q15M PRN PO DECREASED GLUCOSE; Start 01/14/19 at 09:00 Glucose (Glutose) 22.5 gm Q15M PRN PO DECREASED GLUCOSE; Start 01/14/19 at 09:00 Dextrose (D50w Syringe) 25 ml Q15M PRN IV DECREASED GLUCOSE; Start 01/14/19 at 09:00 Dextrose (D50w Syringe) 50 ml Q15M PRN IV DECREASED GLUCOSE; Start 01/14/19 at 09:00 Glucagon (Glucagen) 1 mg Q15M PRN IM DECREASED GLUCOSE; Start 01/14/19 at 09:00 Glucose (Glutose) 15 gm Q15M PRN BUCCAL DECREASED GLUCOSE; Start 01/14/19 at 09:00 Levothyroxine Sodium (Synthroid) 75 mcg QAM PO Last administered on 01/16/19 08:25; Admin Dose 75 MCG; Start 01/15/19 at 09:00 Gabapentin (Neurontin) 100 mg QAM PO Last administered on 01/16/19 08:27; Admin Dose 100 MG; Start 01/15/19 at 09:00 Metoprolol Tartrate (Lopressor) 25 mg BID PO Last administered on 01/16/19 08:26; Admin Dose 25 MG; Start 01/14/19 at 21:00 Apixaban (Eliquis) 5 mg BID PO Last administered on 01/16/19 08:26; Admin Dose 5 MG; Start 01/15/19 at 09:00 Furosemide (Lasix) 40 mg DAILY PO Last administered on 01/16/19 08:26; Admin Dose 40 MG; Start 01/16/19 at 09:00 Amiodarone HCl (Cordarone) 200 mg BID PO Last administered on 01/16/19 08:27; Admin Dose 200 MG; Start 01/15/19 at 15:00 Giovanni Mckinney DO Jan 16, 2019 12:25
== END 2019-01-16 14:26 | disposition home or self-care (01) | DRG 280 ==
LOC: E/R 01:59 → TEL 03:56
PROVIDERS: ADMIT Family Medicine; ATTEND Family Medicine
DX: I13.0 Hypertensive heart and chronic kidney disease with heart failure and stage 1 through stage 4 chronic kidney disease, or unspecified chronic kidney disease (principal); I21.4 Non-ST elevation (NSTEMI) myocardial infarction; I50.43 Acute on chronic combined systolic (congestive) and diastolic (congestive) heart failure; N17.9 Acute kidney failure, unspecified; I42.9 Cardiomyopathy, unspecified; I48.2 Chronic atrial fibrillation; N18.9 Chronic kidney disease, unspecified; E11.8 Type 2 diabetes mellitus with unspecified complications; I25.10 Atherosclerotic heart disease of native coronary artery without angina pectoris; E03.9 Hypothyroidism, unspecified; I35.0 Nonrheumatic aortic (valve) stenosis
CPT/HCPCS: 36415; 36600; 71045; 80048; 80053; 80061; 82550; 82553; 82803; 82962; 83036; 83605; 83735; 83880; 84443; 84484; 85025; 85610; 85730; 87040; 90686; 93005; 93306; 94660; 96365; 96375; J0282; J0692; J1815; J1940; J3370; J3475; J7030; J7060